=== PATIENT | female | born 2000 | race African-American/Black ===

== ENCOUNTER 2022-01-31 08:43 | Emergency (ER) | payer MEDICAID ==
[~2022-01-31] VITALS: Ht 177.8 cm; Wt 125.0 kg
[2022-01-31 08:47] VITALS: BP 144/76
[2022-01-31 10:30] LABS: CLARITY URINE CLEAR (CLEAR); COLOR URINE RED (YELLOW); KETONES URINE NEGATIVE (NEGATIVE); LEUKOCYTE ESTERASE URINE TRACE (NEGATIVE); NITRITE URINE NEGATIVE (NEGATIVE); OCCULT BLOOD URINE 3+ (NEGATIVE); PROTEIN URINE 2+ (NEGATIVE); SPECIFIC GRAVITY URINE 1.002 (1.005-1.030); UROBILINOGEN URINE 0.2 E.U./dL (0.2-1.0)
[2022-01-31 10:35] LABS: BASOPHILS % 0.6 % (0.0-2.0); EOSINOPHILS % 0.4 % (0.0-5.0); HEMATOCRIT. 42.6 % (36.0-48.0); HEMOGLOBIN. 13.9 g/dL (12.0-16.0); LYMPHOCYTES % 11.7 % (20.0-50.0); MEAN CORPUSCULAR HEMOGLOBIN 26.8 pg (28.0-32.0); MEAN CORPUSCULAR VOLUME 82.1 fL (81.0-99.0); MEAN PLATELET VOLUME 9.8 fl (7.4-10.4); MONOCYTES % 4.9 % (2.0-8.0); NEUTROPHILS % 82.4 % (40.0-76.0); PLATELET 367 x1000/uL (130-400); RED BLOOD CELL COUNT 5.19 mill/uL (4.2-5.4); RED CELL DISTRIBUTION WIDTH 14.5 % (11.6-14.6)
[2022-01-31 10:57] LABS: HCG SCREEN NEGATIVE
[2022-01-31 11:16] LABS: CHLORIDE 106 mEq/L (98-107)
[2022-01-31] MEDS ORDERED: IBUP-2029 MT (12:27)
== END 2022-01-31 12:42 | disposition home or self-care (01) ==
LOC: ER 09:00
DX: R10.11 Right upper quadrant pain (principal); R10.31 Right lower quadrant pain; F31.9 Bipolar disorder, unspecified
CPT/HCPCS: 36415; 74176; 80053; 81003; 81025; 84703; 85025; 99284